=== PATIENT | male | born 1985 | race Caucasian/White ===

== ENCOUNTER 2016-08-21 11:41 | Emergency (ER) | payer OTHER ==
--- NOTE | 2016-08-21 12:48 | ED NURSING NOTES ---
Clinical Report - Nurses [facility] [address] [place] [address] 08/21/2016 11:44 Patient: CODY DIAZ TRIAGE Triage time 1150. Acuity: LEVEL 4. Chief Complaint: INJURY TO THE LEFT INDEX FINGER (left lateral index finger MP joint area 1cm lac). --12:12 Luana Magana R.N. 12:00 08/21/16. BP: 137/92. HR: 77. RR: 18. O2 saturation: 99%. Temp: 98.2 F. Pain level now: 010. --12:12 Luana Magana R.N. Weight: 81.6 kg stated. Height/Length: 67 inches Per Patient. BMI: 28.2. --12:08 Luana Magana R.N. Medications Zyrtec 1 tab daily. --12:10 Luana Magana R.N. tylenol 650mg prn headache etc. (not in last 24 hrs) . --12:10 Luana Magana R.N. Allergies No Known Drug Allergy. --12:08 Luana Mgaana R.N. History Arrived by private vehicle. Historian: patient. Accompanied by (brother). Primary physician ([id number]). This occurred just prior to arrival. He sustained a laceration from a sharp edge. PAST MEDICAL HX: Negative. Last tetanus: (10 years ago). SURGERY HX: No history of previous surgery. SOCIAL HX: Heavy tobacco smoker (cigarette)- less than 1 pack per day. Alcohol use; consumes three liquor weekly. --12:12 Luana Magana R.N. Interventions ID band on patient. To treatment room. --12:12 Luana Magana R.N. PHYSICAL ASSESSMENT 11:50. Patient gowned. GENERAL / NEURO / PSYCH: Oriented X 4. Alert. Appears in no acute distress. EXTREMITIES: Capillary refill is less than 2 seconds in the extremities. Extremity pulses are within normal limits. Extremities exhibit normal ROM. Neuro-vascular status intact to the extremity. Left index finger: subcutaneous 1.0 cm laceration. SKIN: Skin is warm and dry. --12:13 Luana Magana R.N. NURSING PROGRESS NOTES 11:50. Reassurance given. Patient identifiers checked. Call light placed in reach. Side rails up. Bed placed in lowest position. Patient ready for evaluation- chart flagged. --12:12 Luana Magana R.N. 12:16 08/21/2016 TDAP IM 0.5 mL given. (Lot#: [id number], expiration date: 07/21/2018). Given in the left deltoid. Allergies verified and confirmed 5 rights. Vaccine information statement provided to the patient. --12:21 Luana Magana R.N. 12:10 suture tray at bedside. --12:22 Luana Magana R.N. 12:40. Wound cleansed with sterile saline. --13:20 Lefty Hancock, Tech1 late entry -12:45. WOUND REPAIR: Wound repair performed by SY. The wound is located on the left hand. The wound is linear. Preparation: suture tray set-up with lidocaine. Wound cleansed per SY with sterile saline and irrigated per SY with sterile saline using a syringe. Procedure: wound repaired with sutures. Post-procedure: he was stable, no complications, bleeding controlled, neuro-vascular status intact distal to wound and dressing applied. Total time of assist / procedure: 15 minutes. --22:16 Luana Magana R.N. 13:00. Applied clean dressing consisting of Band-Aid, following the application of antibiotic ointment. --22:16 Luana Magana R.N. DISPOSITION / DISCHARGE 13:05. Condition at departure: improved and stable. No learning barriers present. Discharge instructions provided and reviewed with the patient and spouse. Reviewed medication(s) (tylenol or motrin for pain). Reviewed wound care instructions. Reviewed referrals (bobo). Patient and spouse verbalized understanding. Written instructions provided in Irish. The patient was discharged home and accompanied by geospatial analyst. He left the Emergency Department ambulatory and via private vehicle. Procurement Specialist driving. --22:14 Luana Magana R.N. 13:00 08/21/16. BP: 122/78. HR: 74. RR: 18. O2 saturation: 99%. Temp: deferred. Pain level now: 0/10. --22:14 Luana Magana R.N. Locked/Released at 08/21/2016 22:17 by Luana Magana R.N.
--- NOTE | 2016-08-21 12:48 | ED ORDER SUMMARY ---
..... Patient: CODY DIAZ OrderSheet [facility] VisitID: [id number] [address] [place] [address] 31y, M Registration Date/Time: 08/21/2016 ORDER SHEET Weight: 81.6 kg (stated) Allergies: No Known Drug Allergy GENERAL ORDERS: MEDICATION ORDERS: Tdap IM 0.5 mL (NOW, per protocol) (12:20 08/21/2016 DDean R.N. per protocol) (12:21 DDean R.N.) IV FLUIDS: ORDER SHEET NOTES: [Electronically signed by Rachel Zamora P.A.-C (13:10 08/21/2016)] [Electronically signed by Luana Magana R.N. (22:17 08/21/2016)] [Electronically locked/signed by Luana Magana R.N. (22:17 08/21/2016)]
--- NOTE | 2016-08-21 12:48 | ED CLINICAL REPORT ---
Clinical Report - Physicians/Mid Levels [facility] [address] [place] [address] 08/21/2016 11:44 Patient: CODY DIAZ Time Seen: 1230Jun 2016. Arrived- By private vehicle. Historian- patient. HISTORY OF PRESENT ILLNESS Chief Complaint: Injury to the left hand. The injury happened just prior to arrival. The patient sustained a direct blow. Occurred at home. Patient is experiencing mild pain. ( Patient reports sustaining a blow from a tool prior to arrival with shortness largely blunt in nature, sustaining injury to his left hand. Patient or handout. Denies any major injuries to the left hand previously. Unsure of his last tetanus immunization. Denies any difficulty with movement. Denies any bleeding.). REVIEW OF SYSTEMS The patient sustained a laceration. No swelling, tingling or numbness. All systems otherwise negative, except as recorded above. PAST HISTORY The patient's dominant hand is the right. He has not had a prior injury to the same area. Tetanus immunization status is unknown. SOCIAL HISTORY Smoker- current status unknown. Alcohol use. PHYSICAL EXAM Appearance: Alert. Head: Head atraumatic. CVS: Normal heart rate and rhythm. Heart sounds normal. Respiratory: No respiratory distress. Breath sounds normal. Skin: Skin warm. Extremities: Dorsal left hand: (ust proximal to the left second MCP, 1 cm laceration. Good distal extension, and sensation. No signs of foreign object. No bleeding. Full-thickness.). Neuro, Vascular and Tendons: Vascular status intact. Capillary refill not prolonged. Motor intact. No functional tendon deficit. Neuro: Oriented X 3. PROGRESS AND PROCEDURES Laceration Repair: Time: 13:09 Aug 21 2016. Location: left hand. Time-out completed immediately before the procedure. Length: 1.5. Complexity: simple (local anesthesia used and sutured). Course of Care: patient here in the ER with signs of the laceration, no signs of infection. Signs of the distal sensation and range of motion. No signs of foreign object. Patient received his tetanus immunization. Otherwise stable to follow-up. Patient is stable. Patient/family counseled. Disposition: Discharged. CLINICAL IMPRESSION Single superficial laceration to the left hand. INSTRUCTIONS Protect wound and keep wound area clean. Apply bacitracin twice daily. Sutures should be removed in six days. (Address: [place] [address] ). Warnings: TETANUS: You were given a tetanus shot during your visit. Make a note for future reference. OTC Medications: Take OTC medications according to label instructions. Available over the counter. Acetaminophen (available over the counter): take according to label instructions. Motrin (available over the counter): take according to label instructions. Follow-up with: Vance Schroeder MD, [facility], , [facility], [address] [place] [address] Follow up. Call for the next available appointment. (Electronically signed by Rachel Zamora P.A.-C 08/21/2016 13:10)
--- NOTE | 2016-08-21 12:48 | ED ORDER SUMMARY ---
..... Patient: CODY DIAZ OrderSheet [facility] VisitID: [id number] [address] [place] [address] 31y, M Registration Date/Time: 08/21/2016 ORDER SHEET Weight: 81.6 kg (stated) Allergies: No Known Drug Allergy GENERAL ORDERS: MEDICATION ORDERS: Tdap IM 0.5 mL (NOW, per protocol) (12:20 08/21/2016 DDean R.N. per protocol) (12:21 DDean R.N.) IV FLUIDS: ORDER SHEET NOTES: [Electronically signed by Rachel Zamora P.A.-C (13:10 08/21/2016)] [Electronically signed by Luana Magana R.N. (22:17 08/21/2016)] [Electronically locked/signed by Luana Magana R.N. (22:17 08/21/2016)]
--- NOTE | 2016-08-21 12:48 | ED CLINICAL REPORT ---
Clinical Report - Physicians/Mid Levels [facility] [address] [place] [address] 08/21/2016 11:44 Patient: CODY DIAZ Time Seen: 1230Jun 2016. Arrived- By private vehicle. Historian- patient. HISTORY OF PRESENT ILLNESS Chief Complaint: Injury to the left hand. The injury happened just prior to arrival. The patient sustained a direct blow. Occurred at home. Patient is experiencing mild pain. ( Patient reports sustaining a blow from a tool prior to arrival with shortness largely blunt in nature, sustaining injury to his left hand. Patient or handout. Denies any major injuries to the left hand previously. Unsure of his last tetanus immunization. Denies any difficulty with movement. Denies any bleeding.). REVIEW OF SYSTEMS The patient sustained a laceration. No swelling, tingling or numbness. All systems otherwise negative, except as recorded above. PAST HISTORY The patient's dominant hand is the right. He has not had a prior injury to the same area. Tetanus immunization status is unknown. SOCIAL HISTORY Smoker- current status unknown. Alcohol use. PHYSICAL EXAM Appearance: Alert. Head: Head atraumatic. CVS: Normal heart rate and rhythm. Heart sounds normal. Respiratory: No respiratory distress. Breath sounds normal. Skin: Skin warm. Extremities: Dorsal left hand: (ust proximal to the left second MCP, 1 cm laceration. Good distal extension, and sensation. No signs of foreign object. No bleeding. Full-thickness.). Neuro, Vascular and Tendons: Vascular status intact. Capillary refill not prolonged. Motor intact. No functional tendon deficit. Neuro: Oriented X 3. PROGRESS AND PROCEDURES Laceration Repair: Time: 13:09 Aug 21 2016. Location: left hand. Time-out completed immediately before the procedure. Length: 1.5. Complexity: simple (local anesthesia used and sutured). Course of Care: patient here in the ER with signs of the laceration, no signs of infection. Signs of the distal sensation and range of motion. No signs of foreign object. Patient received his tetanus immunization. Otherwise stable to follow-up. Patient is stable. Patient/family counseled. Disposition: Discharged. CLINICAL IMPRESSION Single superficial laceration to the left hand. INSTRUCTIONS Protect wound and keep wound area clean. Apply bacitracin twice daily. Sutures should be removed in six days. (Address: [place] [address] ). Warnings: TETANUS: You were given a tetanus shot during your visit. Make a note for future reference. OTC Medications: Take OTC medications according to label instructions. Available over the counter. Acetaminophen (available over the counter): take according to label instructions. Motrin (available over the counter): take according to label instructions. Follow-up with: Vance Schroeder MD, [facility], , [facility], [address] [place] [address] Follow up. Call for the next available appointment. (Electronically signed by Rachel Zamora P.A.-C 08/21/2016 13:10)
--- NOTE | 2016-08-21 12:48 | ED NURSING NOTES ---
Clinical Report - Nurses [facility] [address] [place] [address] 08/21/2016 11:44 Patient: CODY DIAZ TRIAGE Triage time 1150. Acuity: LEVEL 4. Chief Complaint: INJURY TO THE LEFT INDEX FINGER (left lateral index finger MP joint area 1cm lac). --12:12 Luana Magana R.N. 12:00 08/21/16. BP: 137/92. HR: 77. RR: 18. O2 saturation: 99%. Temp: 98.2 F. Pain level now: 010. --12:12 Luana Magana R.N. Weight: 81.6 kg stated. Height/Length: 67 inches Per Patient. BMI: 28.2. --12:08 Luana Magana R.N. Medications Zyrtec 1 tab daily. --12:10 Luana Magana R.N. tylenol 650mg prn headache etc. (not in last 24 hrs) . --12:10 Luana Magana R.N. Allergies No Known Drug Allergy. --12:08 Luana Magana R.N. History Arrived by private vehicle. Historian: patient. Accompanied by (brother). Primary physician ([id number]). This occurred just prior to arrival. He sustained a laceration from a sharp edge. PAST MEDICAL HX: Negative. Last tetanus: (10 years ago). SURGERY HX: No history of previous surgery. SOCIAL HX: Heavy tobacco smoker (cigarette)- less than 1 pack per day. Alcohol use; consumes three liquor weekly. --12:12 Luana Magana R.N. Interventions ID band on patient. To treatment room. --12:12 Luana Magana R.N. PHYSICAL ASSESSMENT 11:50. Patient gowned. GENERAL / NEURO / PSYCH: Oriented X 4. Alert. Appears in no acute distress. EXTREMITIES: Capillary refill is less than 2 seconds in the extremities. Extremity pulses are within normal limits. Extremities exhibit normal ROM. Neuro-vascular status intact to the extremity. Left index finger: subcutaneous 1.0 cm laceration. SKIN: Skin is warm and dry. --12:13 Luana Magana R.N. NURSING PROGRESS NOTES 11:50. Reassurance given. Patient identifiers checked. Call light placed in reach. Side rails up. Bed placed in lowest position. Patient ready for evaluation- chart flagged. --12:12 Luana Magana R.N. 12:16 08/21/2016 TDAP IM 0.5 mL given. (Lot#: [id number], expiration date: 07/21/2018). Given in the left deltoid. Allergies verified and confirmed 5 rights. Vaccine information statement provided to the patient. --12:21 Luana Magana R.N. 12:10 suture tray at bedside. --12:22 Luana Magana R.N. 12:40. Wound cleansed with sterile saline. --13:20 Lefty Hancock, Tech1 late entry -12:45. WOUND REPAIR: Wound repair performed by SY. The wound is located on the left hand. The wound is linear. Preparation: suture tray set-up with lidocaine. Wound cleansed per SY with sterile saline and irrigated per SY with sterile saline using a syringe. Procedure: wound repaired with sutures. Post-procedure: he was stable, no complications, bleeding controlled, neuro-vascular status intact distal to wound and dressing applied. Total time of assist / procedure: 15 minutes. --22:16 Luana Magana R.N. 13:00. Applied clean dressing consisting of Band-Aid, following the application of antibiotic ointment. --22:16 Luana Magana R.N. DISPOSITION / DISCHARGE 13:05. Condition at departure: improved and stable. No learning barriers present. Discharge instructions provided and reviewed with the patient and spouse. Reviewed medication(s) (tylenol or motrin for pain). Reviewed wound care instructions. Reviewed referrals (bobo). Patient and spouse verbalized understanding. Written instructions provided in Portuguese. The patient was discharged home and accompanied by wine cellar worker. He left the Emergency Department ambulatory and via private vehicle. Roadside Mechanic driving. --22:14 Luana Magana R.N. 13:00 08/21/16. BP: 122/78. HR: 74. RR: 18. O2 saturation: 99%. Temp: deferred. Pain level now: 0/10. --22:14 Luana Magana R.N. Locked/Released at 08/21/2016 22:17 by Luana Magana R.N.
--- NOTE | 2016-08-21 22:17 | ED MAR SUMMARY ---
..... Medication Administration Record [facility] [address] [place] [address] Patient: CODY DIAZ Visit ID: [id number] 31y, M Weight: 81.6 kg Height/Length: 67 in BMI: 28.2 ALLERGIES: No Known Drug Allergy Given 12:16 08/21/2016 [place], Angel Craft Medication Administered: TDAP [IM], Dose: 0.5 mL IM. Medication Ordered: Tdap IM 0.5 mL (NOW, per protocol).
--- NOTE | 2016-08-21 22:17 | ED MED RECONCILIATION SUMMARY ---
Patient: CODY DIAZ Medication Reconciliation Report [facility] VisitID: [id number] [place] [address] 31y, M Registration Date/Time: 08/21/2016 Weight: 81.6 kg Height/Length: 67 in. BMI: 28.2 ALLERGIES: No Known Drug Allergy The patient's Home Medications are listed below: THE FOLLOWING MEDICATIONS NEED TO BE RECONCILED: tylenol 650mg prn headache etc. (not in last 24 hrs) Zyrtec 1 tab daily The source(s) of the original Home Medication information: Not obtained. The following Medications were given to the patient in the Emergency Department: TDAP [IM] IM 0.5 mL, administered: 08/21/2016 12:16:00 PM The following Medications were prescribed to the patient: Take OTC medications according to label instructions. Available over the counter. -- Rachel Zamora, P.A.-C Acetaminophen (available over the counter): take according to label instructions. -- Rachel Zamora, P.A.-C Motrin (available over the counter): take according to label instructions. -- Rachel Zamora, P.A.-C
--- NOTE | 2016-08-21 22:17 | ED DISCHARGE INSTRUCTIONS ---
Patient: CODY DIAZ General Instructions [facility] VisitID: [id number] [place] [address] 31y, M Registration Date/Time: 08/21/2016 Single superficial laceration to the left hand. INSTRUCTIONS Protect wound and keep wound area clean. Apply bacitracin twice daily. Sutures should be removed in six days. (Address: [address], [place] [address] ). Warnings: TETANUS: You were given a tetanus shot during your visit. Make a note for future reference. OTC Medications: Take OTC medications according to label instructions. Available over the counter. Acetaminophen (available over the counter): take according to label instructions. Motrin (available over the counter): take according to label instructions. Follow-up with: Vance Schroeder MD, [facility], , [facility], [address] [place] [address] Follow up. Call for the next available appointment. ADDITIONAL INFORMATION Laceration (All Closures) Alaceration is a cut through the skin. This will usually require stitches (sutures) or nidhi if it is deep. Minor cuts may be treated with a surgical tape closure orskin glue. Home care The following guidelines will help you care for your laceration at home: Extremity, face, or trunk wounds Keep the wound clean and dry. If a bandage was applied and it becomes wet or dirty, replace it. Otherwise, leave it in place for the first 24 hours. If stitches or nidhi were used, clean the wound daily. After removing the bandage, wash the area with soap and water. Use a wet cotton swab to loosen and remove any blood or crust that forms. The doctor may prescribe an antibiotic cream or ointment to prevent infection. Do not stop taking this medication until you have finished the prescribed course or the doctor tells you to stop. The doctor may also prescribe medications for pain. Follow the doctors instructions for taking these medications. You may remove the bandage to shower as usual after the first 24 hours, but do not soak the area in water (no swimming) until the stitches or nidhi are removed. If surgical tape was used, keep the area clean and dry. If it becomes wet, blot it dry with a towel. If skin glue was used, do not scratch, rub, or pick at the adhesive film. Do not place tape directly over the film. Do not apply liquid, ointment, or creams to the wound while the film is in place. Do not clean the wound with peroxide and do not apply ointments. Avoid activities that cause heavy sweating until the film has fallen off. Protect the wound from prolonged exposure to sunlight or tanning lamps. You may shower as usual but do not soak the wound in water (no baths or swimming). The film will fall off by itself in 510 days. Scalp wounds During the first two days, you may carefully rinse your hair in the shower to remove blood, glass or dirt particles. After two days, you may shower and shampoo your hair normally. Do not soak your scalp in the tub or go swimming until the stitches or nidhi have been removed. Talk with your doctor before applying any antibiotic ointment to the wound. Mouth wounds Eat soft foods to reduce pain. If the cut is inside of your mouth, clean by rinsing after each meal and at bedtime with a mixture of equal parts water and hydrogen peroxide (do not swallow!). Or, you can use a cotton swab to directly apply hydrogen peroxide onto the cut. Mouth wounds can be painful when eating. You may use an kerd-yrx-[id number] local numbing solution for pain relief. If this is not available, you may use any numbing solution for teething babies. You may apply this directly to the sores with a cotton-tip swab or with your finger. Follow-up care Follow up with your health care provider. Most skin wounds heal within ten days. Mouth and facial wounds heal within five days. However, even with proper treatment, a wound infection may sometimes occur. Therefore, you should check the wound daily for signs of infection listed below. Stitches should be removed from the face within five days; stitches and nidhi should be removed from other parts of the body within 714 days. If dissolving stitches were used in the mouth, these will fall out or dissolve without the need for removal. If tape closures were used, remove them yourself if they have not fallen off after 7 days. Ifskin glue was used, the film will fall off by itself in 510 days. When to seek medical care Get prompt medical attention if any of these occur: Bleeding not controlled by direct pressure Signs of infection, including increasing pain in the wound, increasing wound redness or swelling, or pus coming from the wound Fever of 100.4F (38C) or higher, or as directed by your health care provider Stitches or nidhi come apart or fall out or surgical tape falls off before 7 days Wound edges re-open Diphtheria Toxoid Adsorbed, Pertussis Vaccine, Acellular (Adsorbed), Tetanus Toxoid, Adsorbed Suspension for injection What is this medicine? DIPHTHERIA and TETANUS TOXOIDS; PERTUSSIS VACCINE (dif THEER ee uh and TET n us TOK soids; per TUS iss vak SEEN) is used to prevent diphtheria, tetanus, and pertussis infections. How should I use this medicine? This vaccine is for injection into a muscle. It is given by a health wound care nurse. A copy of Vaccine Information Statements will be given before each vaccination. Read this sheet carefully each time. The sheet may change frequently. Talk to your tool filer regarding the use of this vaccine in children. While the DTP vaccine may be given to children ages 6 weeks to 7 years and the Tdap vaccine may be given to children at least 10 years old, precautions do apply. What side effects may I notice from receiving this medicine? Side effects that you should report to your doctor or health wound care nurse as soon as possible: allergic reactions like skin rash, itching or hives, swelling of the face, lips, or tongue breathing problems fever of 103 degrees F or more flu-like symptoms inconsolable crying infection pain, tingling, numbness in the hands or feet seizures swelling of arm or leg that was injected unusually weak or tired Side effects that usually do not require immediate medical attention (report these side effects to your doctor or health wound care nurse if they continue or are bothersome): fussy, irritable loss of appetite fever of 102 degrees F or less pain, tenderness, redness, swelling, or a 'knot' at site where injected vomiting What may interact with this medicine? immune globulin medicines that suppress your immune function like adalimumab, anakinra, infliximab medicines to treat cancer medicines that treat or prevent blood clots like warfarin, enoxaparin, and dalteparin steroid medicines like prednisone or cortisone What if I miss a dose? It is important not to miss your dose. Call your doctor or health wound care nurse if you are unable to keep an appointment. Where should I keep my medicine? This drug is given in a hospital or clinic and will not be stored at home. What should I tell my health care provider before I take this medicine? They need to know if you have any of these conditions: blood disorders like hemophilia fever or infection immune system problems neurologic disease seizures an unusual or allergic reaction to vaccines, thimerosal, latex, other medicines, foods, dyes, or preservatives or trying to get breast-feeding What should I watch for while using this medicine? See your health care provider for all shots of this vaccine as directed. To have protection from infection, you must have 3 shots of this vaccine plus boosters as needed. Tell your doctor right away if you have any serious or unusual side effects after getting this vaccine. You have been given the following additional information: Laceration, All Diphtheria Toxoid Adsorbed, Pertussis Vaccine, Acellular (Adsorbed), Tetanus Toxoid, Adsorbed Suspension for injection (Electronically signed by Rachel Zamora P.A.-C 08/21/2016 13:10)
--- NOTE | 2016-08-21 22:17 | ED DISCHARGE INSTRUCTIONS ---
Patient: CODY DIAZ General Instructions [facility] VisitID: [id number] [place] [address] 31y, M Registration Date/Time: 08/21/2016 Single superficial laceration to the left hand. INSTRUCTIONS Protect wound and keep wound area clean. Apply bacitracin twice daily. Sutures should be removed in six days. (Address: [address], [place] [address] ). Warnings: TETANUS: You were given a tetanus shot during your visit. Make a note for future reference. OTC Medications: Take OTC medications according to label instructions. Available over the counter. Acetaminophen (available over the counter): take according to label instructions. Motrin (available over the counter): take according to label instructions. Follow-up with: Vance Schroeder MD, [facility], , [facility], [address] [place] [address] Follow up. Call for the next available appointment. ADDITIONAL INFORMATION Laceration (All Closures) Alaceration is a cut through the skin. This will usually require stitches (sutures) or nidhi if it is deep. Minor cuts may be treated with a surgical tape closure orskin glue. Home care The following guidelines will help you care for your laceration at home: Extremity, face, or trunk wounds Keep the wound clean and dry. If a bandage was applied and it becomes wet or dirty, replace it. Otherwise, leave it in place for the first 24 hours. If stitches or nidhi were used, clean the wound daily. After removing the bandage, wash the area with soap and water. Use a wet cotton swab to loosen and remove any blood or crust that forms. The doctor may prescribe an antibiotic cream or ointment to prevent infection. Do not stop taking this medication until you have finished the prescribed course or the doctor tells you to stop. The doctor may also prescribe medications for pain. Follow the doctors instructions for taking these medications. You may remove the bandage to shower as usual after the first 24 hours, but do not soak the area in water (no swimming) until the stitches or nidhi are removed. If surgical tape was used, keep the area clean and dry. If it becomes wet, blot it dry with a towel. If skin glue was used, do not scratch, rub, or pick at the adhesive film. Do not place tape directly over the film. Do not apply liquid, ointment, or creams to the wound while the film is in place. Do not clean the wound with peroxide and do not apply ointments. Avoid activities that cause heavy sweating until the film has fallen off. Protect the wound from prolonged exposure to sunlight or tanning lamps. You may shower as usual but do not soak the wound in water (no baths or swimming). The film will fall off by itself in 510 days. Scalp wounds During the first two days, you may carefully rinse your hair in the shower to remove blood, glass or dirt particles. After two days, you may shower and shampoo your hair normally. Do not soak your scalp in the tub or go swimming until the stitches or nidhi have been removed. Talk with your doctor before applying any antibiotic ointment to the wound. Mouth wounds Eat soft foods to reduce pain. If the cut is inside of your mouth, clean by rinsing after each meal and at bedtime with a mixture of equal parts water and hydrogen peroxide (do not swallow!). Or, you can use a cotton swab to directly apply hydrogen peroxide onto the cut. Mouth wounds can be painful when eating. You may use an [id number]-[id number]-[id number] local numbing solution for pain relief. If this is not available, you may use any numbing solution for teething babies. You may apply this directly to the sores with a cotton-tip swab or with your finger. Follow-up care Follow up with your health care provider. Most skin wounds heal within ten days. Mouth and facial wounds heal within five days. However, even with proper treatment, a wound infection may sometimes occur. Therefore, you should check the wound daily for signs of infection listed below. Stitches should be removed from the face within five days; stitches and nidhi should be removed from other parts of the body within 714 days. If dissolving stitches were used in the mouth, these will fall out or dissolve without the need for removal. If tape closures were used, remove them yourself if they have not fallen off after 7 days. Ifskin glue was used, the film will fall off by itself in 510 days. When to seek medical care Get prompt medical attention if any of these occur: Bleeding not controlled by direct pressure Signs of infection, including increasing pain in the wound, increasing wound redness or swelling, or pus coming from the wound Fever of 100.4F (38C) or higher, or as directed by your health care provider Stitches or nidhi come apart or fall out or surgical tape falls off before 7 days Wound edges re-open Diphtheria Toxoid Adsorbed, Pertussis Vaccine, Acellular (Adsorbed), Tetanus Toxoid, Adsorbed Suspension for injection What is this medicine? DIPHTHERIA and TETANUS TOXOIDS; PERTUSSIS VACCINE (dif THEER ee uh and TET n us TOK soids; per TUS iss vak SEEN) is used to prevent diphtheria, tetanus, and pertussis infections. How should I use this medicine? This vaccine is for injection into a muscle. It is given by a health acute care surgeon. A copy of Vaccine Information Statements will be given before each vaccination. Read this sheet carefully each time. The sheet may change frequently. Talk to your supervisor steno pool regarding the use of this vaccine in children. While the DTP vaccine may be given to children ages 6 weeks to 7 years and the Tdap vaccine may be given to children at least 10 years old, precautions do apply. What side effects may I notice from receiving this medicine? Side effects that you should report to your doctor or health acute care surgeon as soon as possible: allergic reactions like skin rash, itching or hives, swelling of the face, lips, or tongue breathing problems fever of 103 degrees F or more flu-like symptoms inconsolable crying infection pain, tingling, numbness in the hands or feet seizures swelling of arm or leg that was injected unusually weak or tired Side effects that usually do not require immediate medical attention (report these side effects to your doctor or health acute care surgeon if they continue or are bothersome): fussy, irritable loss of appetite fever of 102 degrees F or less pain, tenderness, redness, swelling, or a 'knot' at site where injected vomiting What may interact with this medicine? immune globulin medicines that suppress your immune function like adalimumab, anakinra, infliximab medicines to treat cancer medicines that treat or prevent blood clots like warfarin, enoxaparin, and dalteparin steroid medicines like prednisone or cortisone What if I miss a dose? It is important not to miss your dose. Call your doctor or health acute care surgeon if you are unable to keep an appointment. Where should I keep my medicine? This drug is given in a hospital or clinic and will not be stored at home. What should I tell my health care provider before I take this medicine? They need to know if you have any of these conditions: blood disorders like hemophilia fever or infection immune system problems neurologic disease seizures an unusual or allergic reaction to vaccines, thimerosal, latex, other medicines, foods, dyes, or preservatives or trying to get breast-feeding What should I watch for while using this medicine? See your health care provider for all shots of this vaccine as directed. To have protection from infection, you must have 3 shots of this vaccine plus boosters as needed. Tell your doctor right away if you have any serious or unusual side effects after getting this vaccine. You have been given the following additional information: Laceration, All Diphtheria Toxoid Adsorbed, Pertussis Vaccine, Acellular (Adsorbed), Tetanus Toxoid, Adsorbed Suspension for injection (Electronically signed by Rachel Zamora P.A.-C 08/21/2016 13:10)
--- NOTE | 2016-08-21 22:17 | ED MAR SUMMARY ---
..... Medication Administration Record [facility] [address] [place] [address] Patient: CODY DIAZ Visit ID: [id number] 31y, M Weight: 81.6 kg Height/Length: 67 in BMI: 28.2 ALLERGIES: No Known Drug Allergy Given 12:16 08/21/2016 [place], Angel Craft Medication Administered: TDAP [IM], Dose: 0.5 mL IM. Medication Ordered: Tdap IM 0.5 mL (NOW, per protocol).
--- NOTE | 2016-08-21 22:17 | ED MED RECONCILIATION SUMMARY ---
Patient: CODY DIAZ Medication Reconciliation Report [facility] VisitID: [id number] [place] [address] 31y, M Registration Date/Time: 08/21/2016 Weight: 81.6 kg Height/Length: 67 in. BMI: 28.2 ALLERGIES: No Known Drug Allergy The patient's Home Medications are listed below: THE FOLLOWING MEDICATIONS NEED TO BE RECONCILED: tylenol 650mg prn headache etc. (not in last 24 hrs) Zyrtec 1 tab daily The source(s) of the original Home Medication information: Not obtained. The following Medications were given to the patient in the Emergency Department: TDAP [IM] IM 0.5 mL, administered: 08/21/2016 12:16:00 PM The following Medications were prescribed to the patient: Take OTC medications according to label instructions. Available over the counter. -- Rachel Zamora, P.A.-C Acetaminophen (available over the counter): take according to label instructions. -- Rachel Zamora, P.A.-C Motrin (available over the counter): take according to label instructions. -- Rachel Zamora, P.A.-C
== END 2016-08-21 13:05 | disposition home or self-care (01) ==
LOC: ED SRH 11:41
DX: S61.411A Laceration without foreign body of right hand, initial encounter (principal); W26.8XXA Contact with other sharp object(s), not elsewhere classified, initial encounter; Y93.9 Activity, unspecified; Y99.9 Unspecified external cause status; Y92.009 Unspecified place in unspecified non-institutional (private) residence as the place of occurrence of the external cause; Z23 Encounter for immunization